=== PATIENT | male | born 1995 | race Caucasian/White ===

== ENCOUNTER 2020-03-30 13:41 | Emergency (ER) | payer OTHER, SELFPAY ==
--- NOTE | ~2020-03-30 | XR_ITS ---
EXAMINATION: XR chest 2V DATE: 03/30/2020 14:21 INDICATION: Cough TECHNIQUE: PA and lateral views of the chest were obtained. COMPARISON: None FINDINGS: The lungs are clear with no focal airspace opacities, pulmonary edema, pleural effusion or pneumothor ax. The cardiomediastinal silhouette is normal. Visualized bones and soft tissues are unremarkable. IMPRESSION: 1. Normal chest radiograph. Reviewed, dictated and finalized at location B. IMPRESSION: 1. Normal chest radiograph.
[2020-03-30 14:01] VITALS: BP 118/79; PULSE 78; RESP 16; TEMP 36.6; O2SAT 98
--- NOTE | 2020-03-30 14:08 | ED.GENADULT ---
HPI - General Adult General Chief complaint: Upper Respiratory Infection Stated complaint: Cough/Sore throat/ URI Time Seen by Provider: 03/30/20 14:08 Source: patient and RN notes reviewed Mode of arrival: ambulatory Limitations: no limitations History of Present Illness HPI narrative: 24-year-old male presents with complains of dry cough, sore throat, fever, and swollen lymph nodes for the past 5 days. No treatments. Alok says he is here to obtain a COVID-19 test to return to work (sent home Saturday from work the [employer] [facility] [employer] [facility]), he was instructed the test was not conducted here at this facility but an order will be obtained for 1-2 days. Intermittent dry cough. Rhinorrhea and nasal congestion. High fevers, as high as 101.1 temporal on 03/25-- per patient without chills. No drooling, neck or throat swelling. No chest pain, wheezing, or shortness of breath. Exacerbation factor consist of smoking. Denies nausea, vomiting, and abdominal pain. Tolerating liquids well. The patient reports he have not been diagnosed with COVID-19. The patient reports he have not been exposed to COVID-19. The patient reports he is not waiting for the results of a COVID-19 lab test. The patient reports he do not have chills, or weakness. The patient reports he do not have a worsening cough or shortness of breath. The patient reports he do not have any loss of taste or diarrhea. Denies recent traveling. Denies concerns for COVID-19 or exposures been home with limited outdoor exposure except for essential household needs, work, and return home. At this time, patient is not suspected of having COVID-19. Some parts of this dictation were generated by voice recognition software and may contain typographical and/or grammatical inaccuracies. Related Data Allergies Allergy/AdvReac Type Severity Reaction Status Date / Time No Known Allergies Allergy Verified 04/23/17 08:30 Review of Systems Review of Systems: Narrative: CONSTITUTIONAL: Denies chills, sweats. Complains of swollen lymph nodes. Complains of fever-resolved 3 days ago. EYES: Denies visual changes, redness, discharge. ENT: Denies rhinorrhea, congestion, sore throat. Denies otalgia. CARDIOVASCULAR: Denies chest pain, palpitations, edema. RESPIRATORY: Denies dyspnea, wheezing. Complains of cough. GASTROINTESTINAL: Denies abdominal pain, nausea, vomiting, diarrhea. GENITOURINARY: Denies dysuria, hematuria, abnormal discharge. SKIN: Denies rash or itching. MUSCULOSKELETAL: Denies acute back pain, joint pain, or myalgia. NEUROLOGIC: Denies numbness or focal weakness. PSYCHIATRIC: Denies anxiety or depression. All other systems reviewed are negative, except as documented in HPI and below. [facility] Past Medical History Medical History (Updated 03/30/20 @ 14:35 by MURRAY Burnham) No significant past medical history Surgical History Surgical History (Updated 03/30/20 @ 14:30 by MURRAY Burnham) No significant past surgical history Family History Family History (Updated 03/30/20 @ 14:31 by MURRAY Burnham) Father Alive and well Mother Alive and well Social History Social History (Updated 03/30/20 @ 14:31 by MURRAY Burnham) Smoking packs per day: 0.25 Smoking cigarettes per day: 5.0 Years smoked: 12 Smoking pack-years: 3.00 Smoking status: Current every day smoker Tobacco type: cigarettes Second hand tobacco smoke exposure: No Alcohol intake: never Substance use: never Gender identity (if verbalized by the patient): Male Comments At time of signature, agree with nurse past medical, surgical, social, and family history. There is no relevant family history pertinent to the presenting complaint. Exam Narrative: Exam Narrative: GENERAL: This is a well-nourished, well-developed patient, in no apparent distress. Talks in full sentences and ambulates with steady gait without dyspnea. HEAD: normocephalic, atr
== END 2020-03-30 14:47 | disposition home or self-care (01) ==
PROVIDERS: Emergency Provider Nurse Practitioner Family
DX: J40 Bronchitis, not specified as acute or chronic (principal); J06.9 Acute upper respiratory infection, unspecified; Z20.828 Contact with and (suspected) exposure to other viral communicable diseases; F17.210 Nicotine dependence, cigarettes, uncomplicated
CPT/HCPCS: 71046; 87070; 87081; 87804; 87880; 99213; G0463

== ENCOUNTER 2020-04-18 14:59 | Emergency (ER) | payer OTHER, SELFPAY ==
--- NOTE | 2020-04-18 15:06 | ED.GENADULT ---
HPI - General Adult General Chief complaint: Skin/Abscess/Foreign Body Stated complaint: Pos skin abcess Time Seen by Provider: 04/18/20 15:06 Source: patient Mode of arrival: ambulatory Limitations: no limitations History of Present Illness HPI narrative: 24-year-old male patient presents to the [facility] with complaints of a wound to the left groin area for the past 3 weeks. Patient states he thought it was going to get better but states it is continued to get worse. Patient denies any fevers body aches or chills. Patient states he has been cleaning with hydrogen peroxide and putting Neosporin on it. Patient states that time that bubbles up and then it pops and drains. Patient states recently has been draining some yellow fluid. Patient states is very tender to touch. Related Data Allergies Allergy/AdvReac Type Severity Reaction Status Date / Time No Known Allergies Allergy Verified 04/18/20 15:14 Review of Systems Review of Systems: Narrative: CONSTITUTIONAL: Denies fever, chills, or sweats. EYES: Denies visual changes, redness, or discharge. ENT: Denies rhinorrhea, congestion, sore throat, or otalgia. CARDIOVASCULAR: Denies chest pain, palpitations, or edema. RESPIRATORY: Denies cough or dyspnea. GASTROINTESTINAL: Denies abdominal pain, nausea, vomiting, or diarrhea. GENITOURINARY: Denies dysuria or hematuria. SKIN: Denies rash or itching. Positive wound to left groin x3 weeks MUSCULOSKELETAL: Denies back pain, joint pain, or myalgia. NEUROLOGIC: Denies headache, numbness, or weakness. PSYCHIATRIC: Denies anxiety or depression. [facility] Past Medical History Medical History (Updated 04/18/20 @ 15:15 by MURRAY Zapata) Fractures Left elbow and left leg No significant past medical history Surgical History Surgical History No significant past surgical history Family History Family History Father Alive and well Mother Alive and well Social History Social History Smoking packs per day: 0.25 Smoking cigarettes per day: 5.0 Years smoked: 12 Smoking pack-years: 3.00 Smoking status: Current every day smoker Tobacco type: cigarettes Second hand tobacco smoke exposure: No Alcohol intake: never Substance use: never Gender identity (if verbalized by the patient): Male Comments At the time of my signature I agree with nursing past medical history, surgical, social, and family history. There is no relevant family history pertinent to the presenting complaint. Exam Narrative: Exam Narrative: GENERAL: Well-appearing, well-nourished, and in no acute distress. HEAD: Normocephalic, atraumatic. EYES: PERRLA and EOMI. ENT: Nares clear, no rhinorrhea or epistaxis. Mucous membranes moist. NECK: Supple. No lymphadenopathy CHEST: Clear to auscultation. No respiratory distress. HEART: Regular rate and rhythm. No murmur heard. Normal peripheral pulses. ABDOMEN: Soft, nontender, nondistended, normal active bowel sounds. EXTREMITIES: Normal range of motion. No edema. SKIN: Warm, dry, no rash. Patient has approximately 2 cm x 0.5 cm oval shaped crusty lesion noted to the left groin area that is draining yellow discharge. There is some surrounding erythema. No swelling or warmth to the touch. NEURO: No focal deficits. Alert and oriented x3. Course Vital Signs Vital signs: Vital signs reviewed. Medical Decision Making Differential Diagnosis Differential Diagnosis: Differential diagnosis: Abscess, cellulitis, hidradenitis, laceration, puncture wound. Cussed with patient it does appear that this is an abscess that has popped and draining right now. Discussed with patient that we will go ahead and put him on some oral antibiotics as well as give him a topical antibiotic to encourage healing. Discussed with patient he needs to cleanse
[2020-04-18 15:15] VITALS: BP 128/81; PULSE 107; RESP 16; TEMP 37.5; O2SAT 98
== END 2020-04-18 15:23 | disposition home or self-care (01) ==
PROVIDERS: Emergency Provider Nurse Practitioner Family
DX: L03.314 Cellulitis of groin (principal); L02.214 Cutaneous abscess of groin; F17.210 Nicotine dependence, cigarettes, uncomplicated
CPT/HCPCS: 99213; G0463

== ENCOUNTER 2023-12-22 17:51 | Emergency (ER) | payer SELFPAY ==
--- NOTE | ~2023-12-22 | XR_ITS ---
XR hand RT min 3V 12/22/2023 18:41 INDICATION: Right hand pain PROCEDURE: 3 views right hand COMPARISON: No prior studies for comparison. FINDINGS: Fracture, dislocation or subluxation is not identified. The soft tissues appear within norm al limits. No foreign bodies are identified. IMPRESSION: 1: NO ACUTE BONE OR JOINT ABNORMALITY IDENTIFIED. Reviewed, dictated and finalized at location A.
[2023-12-22 18:03] VITALS: BP 120/80; PULSE 84; RESP 18; TEMP 36.9; O2SAT 100
[2023-12-22 18:05] VITALS: BP 120/80; PULSE 84; RESP 18; TEMP 36.9; O2SAT 100
--- NOTE | 2023-12-22 18:23 | ED.SKABFB ---
HPI - Skin/Abscess/Foreign Bdy General Chief complaint: Skin/Abscess/Foreign Body Stated complaint: Dog bite on right hand Time Seen by Provider: 12/22/23 18:13 Source: patient and RN notes reviewed Mode of arrival: ambulatory Limitations: no limitations History of Present Illness HPI narrative: Patient presents today complaining of a dog bite to the dorsum of his right hand that occurred approximately 15 hours prior to arrival and his home. It was a friend's dog that is visiting his home, that got in a fight with his cat. He was bit when they were trying to separate the animals. Patient is not up-to-date on his tetanus vaccine. Currently rates his pain 9/10 and has tried no [id number] treatment prior to arrival. States the hand is become more red and swollen through the day. Related Data Allergies Allergy/AdvReac Type Severity Reaction Status Date / Time No Known Allergies Allergy Verified 12/22/23 18:04 Review of Systems Review of Systems: CONSTITUTIONAL: Denies body aches, fever, chills, or sweats. EYES: Denies visual changes, redness, or discharge. ENT: Denies rhinorrhea, congestion, sore throat, or otalgia. CARDIOVASCULAR: Denies chest pain, palpitations, or edema. RESPIRATORY: Denies cough or dyspnea. GASTROINTESTINAL: Denies abdominal pain, nausea, vomiting, or diarrhea. GENITOURINARY: Denies dysuria or hematuria. SKIN: Denies rash, itching, or wounds.+ dog bite MUSCULOSKELETAL: Denies back pain, joint pain, or myalgia. NEUROLOGIC: Denies headache, numbness, tingling, or weakness. PSYCH: Denies depression or anxiety. [facility] Past Medical History Medical History Fractures Left elbow and left leg No significant past medical history Surgical History Surgical History No significant past surgical history Family History Family History Father Alive and well Mother Alive and well Social History Social History Smoking packs per day: 0.25 Smoking cigarettes per day: 5.0 Years smoked: 12 Smoking pack-years: 3.00 Smoking status: Current every day smoker Tobacco type: cigarettes Second hand tobacco smoke exposure: No Alcohol intake: never Substance use: never Living arrangements: with family Occupation/Education: occupation Gender identity (if verbalized by the patient): Male Sexual Orientation (if Verbalized by the Patient): Straight or Heterosexual Comments At time of signature, I have reviewed and agree with nursing past medical, surgical, social and family history unless otherwise noted. Please see nursing chart for further information. There is no relevant family history pertinent to the presenting complaint Exam Narrative: GENERAL: Well-appearing, well-nourished, and in no acute distress. HEAD: Normocephalic, atraumatic. EYES: EOMI. No redness or drainage. Conjunctivae normal. ENT: Mucous membranes pink and moist. NECK: Normal AROM. CHEST: No respiratory distress. EXTREMITIES: Right hand: Superficial linear abrasion to the dorsum of the 3rd proximal phalanx. Puncture wound at the dorsum of the 3rd MCP. Moderate erythema and edema to the 2nd through 4th MCPs. Distal sensation intact. Capillary refill normal. Decreased range of motion of the fingers due to pain and swelling. SKIN: Warm, dry, no rash. Capillary refill normal. Normal skin turgor. NEURO: No focal deficits. Alert and oriented x3. Gait steady. PSYCH: Normal affect. No signs of depression or anxiety. Course Course Level of Care: Express Care Visit Vital Signs Vital signs: Vital Signs Temperature 98.4 F 12/22/23 18:03 Pulse Rate 84 12/22/23 18:03 Respiratory Rate 18 12/22/23 18:03 Blood Pressure 120/80 12/22/23 18:03 Pulse Oxime
[2023-12-22] MEDS: cefTRIAXone 500 MG, LIDOCAINE HCL 1% LOCAL INJ 1 ML IM (18:30)
[2023-12-22] MEDS: TETANUS,DIPHTHERIA,AC PERTUSSIS ADULT (0.5 ML) BOOSTRIX IM (18:31)
[2023-12-22] MEDS: dexAMETHasone SOD PHOS INJ 10 MG/ML 1 ML VIAL 12 MG IM (18:31)
== END 2023-12-22 19:12 | disposition home or self-care (01) ==
PROVIDERS: Emergency Provider Nurse Practitioner
DX: S61.431A Puncture wound without foreign body of right hand, initial encounter (principal); S60.412A Abrasion of right middle finger, initial encounter; W54.0XXA Bitten by dog, initial encounter; F17.210 Nicotine dependence, cigarettes, uncomplicated; Z23 Encounter for immunization
CPT/HCPCS: 73130; 90471; 90715; 96372; 99214; G0463; J0696; J1100